=== PATIENT | male | born 1945 | race Caucasian/White ===

== ENCOUNTER 2017-10-06 08:27 | Emergency (ER) | payer MEDICARE ==
[2017-10-06] MEDS ORDERED: SODIUM CHLORIDE 0.9% 500 ML IV ONE (08:59)
--- NOTE | 2017-10-06 09:08 | Emergency Department Record ---
History of Present Illness - General Chief complaint: Pain Stated complaint: CHEST PAIN Time Seen by Provider: 10/06/17 08:57 Source: Patient Mode of Arrival: Ambulatory Limitations: No limitations - History of Present Illness Initial comments: 72 yo male presents with 3 days of right scapular pain. The pain is with lifting and moving the arm. At times the pain radiates down the right arm. He has some discomfort in the 3rd through fifth fingers as well. NO chest pain. [facility] sent him to the ED for chest pain. He has denies chest pain multiple times. No exertion symptoms. No shortness of breath or sweating. The pain is worsened by lifting the right arm upward. No swelling. His BP is typically elevated near 190/100 when he sees [facility] in [facility]. MD Complaint: Other (Back and right posterior shoulder pain) Onset/Timin -: Days(s) Location: Right, Shoulder History of Same: No Radiation: Distal Severity scale (1-10): 5 Quality: Aching Consistency: Constant Improves with: Nothing, Movement Associated Symptoms: Denies other symptoms - Related Data Previous Rx's Medication Instructions Recorded Cyclobenzaprine HCl [Flexeril] 10 mg PO TID #15 tablet 10/06/17 Allergies Allergy/AdvReac Type Severity Reaction Status Date / Time ampicillin Allergy RASH Verified 10/06/17 08:57 Travel Screening - Travel/Exposure Within Last 30 Days Have you traveled within the last 30 days?: No Review of Systems Constitutional: Denies: Chills, Fever, Malaise, Weakness Eyes: Denies: Eye discharge, Eye pain, Photophobia, Vision change ENT: Denies: Congestion, Throat pain Respiratory: Denies: Cough, Dyspnea, Hemoptysis, Stridor, Wheezes Cardiovascular: Denies: Chest pain, Palpitations, Syncope Endocrine: Denies: Fatigue, Polydipsia, Polyuria Gastrointestinal: Denies: Abdominal pain, Diarrhea, Nausea, Vomiting Genitourinary: Denies: Dysuria, Frequency, Hematuria Musculoskeletal: Reports: As per HPI, Arthralgia, Back pain, Myalgia Skin: Denies: Bruising, Change in color, Rash Neurological: Denies: Confusion, Headache, Numbness, Tremors, Vertigo, Weakness Psychiatric: Denies: Anxiety Hematological/Lymphatic: Denies: Blood Clots, Easy bleeding, Easy bruising, Swollen glands Past Medical History - SOCIAL HISTORY Smoking Status: Never smoker Alcohol Use: None Drug Use: None - RESPIRATORY Hx Respiratory Disorders: Yes - CARDIOVASCULAR Hx Cardio Disorders: Yes Hx Hypertension: Yes (on meds fair control up and down) Hx Palpitations: Yes - NEURO Hx Neuro Disorders: Yes Hx of Migraines: Yes (occular occassionally) - GI Hx GI Disorders: No - Hx Genitourinary Disorders: Yes Hx Prostate Problems: Yes (TURP) - ENDOCRINE Hx Endocrine Disorders: No - MUSCULOSKELETAL Hx Musculoskeletal Disorders: Yes - PSYCH Hx Psych Problems: No - HEMATOLOGY/ONCOLOGY Hx Hematology/Oncology Disorders: No Family Medical History Any Significant Family History?: Yes Hx Heart Disease: Father, Brother/Sister Hx Resp Disorders: Father, Mother Physical Exam - General General Appearance: Alert, Oriented x3, Cooperative, No acute distress Limitations: No limitations - Head Head exam: Atraumatic, Normal inspection - Eye Eye exam: Normal appearance, PERRL. negative: Conjunctival injection, Scleral icterus - ENT ENT exam: Normal exam, Mucous membranes moist Ear exam: Normal external inspection Nasal Exam: Normal inspection Mouth exam: Normal external inspection Teeth exam: Normal inspection Throat exam: Normal inspection - Neck Neck exam: Normal inspection, Full ROM. negative: Tenderness - Respiratory Respiratory exam: Normal lung sounds bilaterally. negative: Respiratory distress, Rhonchi, Stridor, Wheezes - Cardiovascular Cardiovascular Exam: Regular rate, Normal rhythm, Normal heart sounds. negative : Diastolic murmur, Systolic murmur Peripheral Pulses: 2+: Radial (R), Radial (L) - GI/Abdominal GI/Abdominal exam: Soft. 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 negative: Calf tenderness, Joint swelling, Pedal edema Image of Full Body: 1 - tender medial scapular area, pain is located hear with lifting his arm, very reproducible - Back Back exam: Reports: Normal inspection, Paraspinal tenderness. Denies: CVA tenderness (R), CVA tenderness (L) - Neurological Neurological exam: Alert, Normal gait, Oriented X3, Other ([employer] 5/5, extension of wrist 5/5, OK sign 5/5, ). negative: Motor sensory deficit - Psychiatric Psychiatric exam: Normal affect, Normal mood - Skin Skin exam: Dry, Intact, Normal color, Warm Course Vital Signs 10/06/17 08:53 Temperature 97.8 F Pulse Rate 68 Respiratory 16 Rate Blood Pressure 197/104 Pulse Ox 100 - Reevaluation(s) Reevaluation #1: The pain on examination is musculoskeletal and reproducible He does however have elevated blood pressure. I recommended a CTA to rule out other serious underlying conditions prior to treatment for musculoskeletal pain 10/06/17 09:07 10/06/17 09:08 EKG NSR rate 60, intervals normal, axis normal, ST No acute changes. No prior for comparison 10/06/17 09:53 The patient has elevated CR and GFR I explained CT will be NC given the risks of renal injury. I explained some limitations given no contrast. 10/06/17 10:[address] scan of the patient was negative. I explained the limitations. His examination remains very suggestive of a muscle source given pain with movement and certain positions relieve and certain positions aggravate the pain. He may need a follow up with his PCP to discuss MRI given some pain radiates down the arm and suggest possible radicular component. Medical Decision Making - Lab Data Result diagrams: 10/06/17 09:05 10/06/17 09:05 Disposition Disposition: Discharge Clinical Impression: Pain in scapula Disposition: Home, Self-Care Condition: (1) Good Instructions: Thoracic Pain (ED) Additional Instructions: Return of be seen immediately if worse, chest pain, cough or short of breath Call your doctor for a recheck if not resolved in 1-2 days Off work next todays to avoid lifting No driving if you take the Flexeril No motrin given your long standing kidney issues You will need your chronically elevated blood pressure rechecked this week with your doctor Prescriptions: Cyclobenzaprine HCl [Flexeril] 10 mg PO TID #15 tablet Forms: Patient Portal Access Time of Disposition: 10:47 Quality - Quality Measures Quality Measures: N/A - Blood Pressure Screening Does Patient Have Any of the Following: Active Dx of HTN Blood Pressure Classification: Hypertensive Reading Systolic Measurement: 175 Diastolic Measurement: 101 Screening for High Blood Pressure: Patient Exclusion, Hx of HTN [G9744]
[2017-10-06 09:17] LABS: BASO % 0.3 % (0-6); EOS % 1.1 % (0-6); GRAN % 62.1 % (47-80); HEMATOCRIT 50.8 % (42.0-52.0); HEMOGLOBIN 17.9 gm/dl (14.0-18.0); LYMPH % 25.4 % (16-45); MEAN CELL VOLUME 90.1 fl (81-97); MEAN CORPUSCULAR HEMOGLOBIN 31.7 pg (27-33); MEAN CORPUSCULAR HGB CONC 35.2 g/dl (32-36); MEAN PLATELET VOLUME 10.2 fl (7.4-10.4); MONO % 11.1 % (0-9); PLATELET COUNT 238 K/uL (130-400); RED BLOOD COUNT 5.64 M/uL (4.40-5.70); WHITE BLOOD COUNT W/O DIFF 6.3 K/uL (4.2-12.2)
[2017-10-06 09:33] LABS: CREATININE 1.6 mg/dL (0.7-1.2)
--- NOTE | 2017-10-06 10:53 | CT SCAN REPORT ---
EXAM: CT OF THE CHEST WITHOUT CONTRAST HISTORY: DIFFICULTY BREATHING. TECHNIQUE: Sequential axial images were obtained from the thoracic inlet through the bilateral adrenal glands without intravenous contrast administration. FINDINGS: There is mild ectasia of the thoracic aorta. There is coronary artery vascular calcification. The heart size is normal. No pericardial effusion. No mediastinal or hilar lymphadenopathy. No infiltrate or pleural effusion. The osseous structures are normal. The visualized upper abdominal structures are normal. There is cystic change to both kidneys. This was incompletely evaluated on this examination. IMPRESSION: 1. NO ACUTE PULMONARY DISEASE PROCESS. 2. CYSTIC CHANGE TO BOTH KIDNEYS. JOB NUMBER: [id number] [facility]
== END 2017-10-06 11:20 | disposition home or self-care (01) ==
LOC: ER 08:27
DX: M54.6 Pain in thoracic spine (principal); M25.511 Pain in right shoulder; R06.00 Dyspnea, unspecified; I10 Essential (primary) hypertension
CPT/HCPCS: 71250; 80048; 85025; 93005; 93010; 99284